=== PATIENT | male | born 1965 | race African-American/Black ===

== ENCOUNTER 2020-04-16 17:27 | Emergency (ER) | payer BC, SELFPAY ==
[2020-04-16 17:38] VITALS: BP 152/75; PULSE 70; RESP 16; TEMP 36.9; O2SAT 99
--- NOTE | 2020-04-16 17:38 | ED.GENADULT ---
HPI - General Adult General Chief complaint: Extremity Injury, Upper Stated complaint: left shoulder pain Time Seen by Provider: 04/16/20 17:45 Source: patient and RN notes reviewed Mode of arrival: ambulatory Limitations: no limitations History of Present Illness HPI narrative: 54-year-old -[place] male presents with complaints of left posterior shoulder pain for the past 7 day. Heating pad and Icyhot with little relief. Chavo says he has been working a lot of overtime at work, in which he lifts a lot of heavy boxes. Denies numbness or tingling. No known injury. Hurts with movement of shoulder. Denies radiating pain. No loss of mobility. No swelling. Exacerbating factor is movement. Relieving factor is rest and pain medication. The dominant hand is the RIGHT HAND. Remains active. The patient reports he have not been diagnosed with COVID-19. The patient reports he is not waiting for the results of a COVID-19 lab test. The patient reports he do not have fever, chills, weakness, or fatigue. The patient reports he do not have a new or worsening cough or shortness of breath. Denies chest pain. The patient reports he do not have any rhinorrhea, congestion, sore throat, loss of taste, nausea, vomiting, abdominal pain, and diarrhea. Tolerating po intake well. Denies recent traveling. Denies concerns for COVID-19 or exposures been home with limited outdoor exposure except for essential household needs, work, and return home. At this time, patient is not suspected of having COVID-19. Some parts of this dictation were generated by voice recognition software and may contain typographical and/or grammatical inaccuracies. Related Data Allergies Allergy/AdvReac Type Severity Reaction Status Date / Time No Known Allergies Allergy Unverified 04/23/16 17:47 Review of Systems Review of Systems: Narrative: CONSTITUTIONAL: Denies fever, chills, sweats. EYES: Denies visual changes, redness, discharge. ENT: Denies rhinorrhea, congestion, sore throat, otalgia. CARDIOVASCULAR: Denies chest pain, palpitations, edema. RESPIRATORY: Denies dyspnea, wheezing, cough. GASTROINTESTINAL: Denies abdominal pain, nausea, vomiting, diarrhea. GENITOURINARY: Denies dysuria, hematuria, abnormal discharge. SKIN: Denies rash or itching. MUSCULOSKELETAL: Denies acute back pain or myalgia. Complains of LT posterior shoulder pain. NEUROLOGIC: Denies numbness or focal weakness. PSYCHIATRIC: Denies anxiety or depression. All other systems reviewed & are unremarkable except as noted in HPI and below. [facility] Past Medical History Medical History (Updated 04/17/20 @ 00:00 by Jenny Daemon) Asthma Broken thumb Right Broken wrist Right Surgical History Surgical History (Updated 04/16/20 @ 17:53 by TRINO Fry) H/O right wrist surgery History of thumb surgery Family History Family History (Updated 04/16/20 @ 17:54 by TRINO Fry) Father , Father was killed when patient was 5 years ago No problems noted. Mother Breast cancer Patient says mother is a recovering breast cancer candidate Social History Social History (Updated 04/16/20 @ 17:54 by TRINO Fry) Smoking status: Never smoker Tobacco type: cigarettes Second hand tobacco smoke exposure: No Alcohol intake: current Substance use: never Living arrangements: with family Occupation/Education: occupation Gender identity (if verbalized by the patient): Male Sexual Orientation (if Verbalized by the Patient): Straight or Heterosexual Comments At time of signature, agree with nurse past medical, surgical, social, and family history. There is no relevant family history pertinent to the presenting complaint. Exam Narrative: Exam Narrative: GENERAL: This is a well-nourished, well-developed patient, in no apparent distress. Talks in full sentences and ambulates with steady gait without dyspnea. HEAD: normocephalic,
== END 2020-04-16 18:07 | disposition home or self-care (01) ==
PROVIDERS: Emergency Provider Nurse Practitioner Family
DX: M25.512 Pain in left shoulder (principal); J45.909 Unspecified asthma, uncomplicated
CPT/HCPCS: 99213; G0463

== ENCOUNTER 2021-09-04 11:05 | Outpatient (CLI) | payer BC, SELFPAY ==
--- NOTE | ~2021-09-04 | US_ITS ---
EXAMINATION: US renal BI DATE: 09/04/2021 11:58 INDICATION: Stage IIIa chronic kidney disease. TECHNIQUE: Multiple ultrasound grayscale images of the kidneys were obtained. COMPARISON: None. FINDINGS: The right kidney measures 9.8 x 4.5 x 3.6 cm. The left kidney measures 9.1 x 4.6 x 3.8 cm. The kidney s demonstrate normal parenchymal echogenicity. There is no hydronephrosis. The bladder is normal. The re is a 10 mm hyperechoic mass in the liver. There is mild splenomegaly measuring 13.2 cm. IMPRESSION: 1. Normal kidneys. No hydronephrosis. 2. 10 mm hyperechoic liver mass. In the absence of known malignancy or chronic liver disease, this fi nding is likely a hemangioma. 3. Mild splenomegaly. Reviewed, dictated and finalized at location B. [employer] IMPRESSION: 1. Normal kidneys. No hydronephrosis. 2. 10 mm hyperechoic liver mass. In the absence of known malignancy or chronic liver disease, this finding is likely a hemangioma. 3. Mild splenomegaly.
[2021-09-04 12:23] LABS: Anion Gap 7 mmol/L (8-16); Blood Urea Nitrogen 19 mg/dL (9-20); Calcium 9.1 mg/dL (8.4-10.2); Carbon Dioxide 26 mmol/L (22-30); Chloride 106 mmol/L (98-107); Estimated Glomerular Filt Rate 59; Glucose 102 mg/dL (65-110); Potassium 4.6 mmol/L (3.4-5.0); Sodium 139 mmol/L (137-145)
== END 2021-09-04 11:06 | disposition home or self-care (01) ==
LOC: ANHIMG 11:15
PROVIDERS: PCP Family Medicine; Visit Provider Internal Medicine Nephrology
DX: I50.32 Chronic diastolic (congestive) heart failure (principal); N18.31 Chronic kidney disease, stage 3a; R16.1 Splenomegaly, not elsewhere classified
CPT/HCPCS: 36415; 76775; 80048

== ENCOUNTER → 2021-12-16 16:54 | Outpatient (CLI) | payer BC, SELFPAY ==
--- NOTE | ~2021-12-16 | XR_ITS ---
EXAMINATION: XR lumbar spine 2-3V DATE: 12/16/2021 17:35 INDICATION: Low back pain TECHNIQUE: Anteroposterior and lateral views of the lumbar spine, and cone-down lateral view of the l umbosacral junction were obtained. COMPARISON: None. FINDINGS: There are 3 mm of retrolisthesis of L4 on L5. Vertebral body alignment is otherwise maintai jovanna. There is no fracture. The vertebral body heights are normal. There is mild loss of intervertebra l disc space height at L5-S1. Mild facet osteoarthritis is noted in the lower lumbar spine. IMPRESSION: 1. Mild lumbar spondylosis without acute findings. Reviewed, dictated and finalized at location F.
== END ==
PROVIDERS: PCP Family Medicine; Visit Provider Family Medicine
DX: M47.896 Other spondylosis, lumbar region (principal)
CPT/HCPCS: 72100

== ENCOUNTER 2023-02-16 16:49 | Outpatient (CLI) | payer BC, SELFPAY ==
--- NOTE | ~2023-02-16 | XR_ITS ---
EXAM: XR lumbar spine 2-3V DATE: 02/16/2023 17:01 HISTORY: M54.50 - Low back pain, unspecified . COMPARISON: 12/16/2021. FINDINGS: 5 nonrib-bearing lumbar-type vertebral bodies. Rudimentary disc at S1-S2. Pedicles intact. 4 mm retrolisthesis at L5-S1. Vertebral body heights preserved. Mild disc space narrowing at L4-5. M oderate lower lumbar facet hypertrophy and sclerosis. No fracture or dislocation. IMPRESSION: Spinal levels are numbered differently than in the prior study. Consider radiographs of the complete spine for level confirmation if surgical or other intervention is planned in the lumbar spine. Grade 1 retrolisthesis at L5-S1. Mild degenerative disc disease at L4-5. Moderate lower lumbar facet arthropathy. Reviewed, dictated and finalized at location K. IMPRESSION: Spinal levels are numbered differently than in the prior study. Consider radiog raphs of the complete spine for level confirmation if surgical or other interve ntion is planned in the lumbar spine. Grade 1 retrolisthesis at L5-S1. Mild degenerative disc disease at L4-5. Modera te lower lumbar facet arthropathy.
== END 2023-02-16 16:50 ==
LOC: MICIMG 16:50
PROVIDERS: PCP Family Medicine; Visit Provider Family Medicine
DX: M51.36 Other intervertebral disc degeneration, lumbar region (principal)
CPT/HCPCS: 72100

== ENCOUNTER 2023-05-02 02:15 | Day surgery (SDC) | payer BC, SELFPAY ==
[2023-04-18 15:29] VITALS: BMI 34.0
--- NOTE | 2023-05-02 09:03 | P.PNAN_ITS ---
Anes - Initial Pre Proc Eval Procedure: Operation Date: 05/02/23 13:30 Proposed Procedures p Screening Colonoscopy - Francisco Eastman MD Date/Time: 05/02/23 09:03 Surgeon: Francisco Eastman MD Pre Op Diagnosis: neoplasm screening Patient Data Age: 58 Gender: M Height: 1.88 m Weight: 120 kg Allergies Allergy/AdvReac Type Severity Reaction Status Date / Time No Known Allergies Allergy Verified 05/02/23 13:34 Home Medications Medication Instructions Recorded Confirmed Type carvedilol 12.5 mg tablet 12.5 mg PO Q12H 06/09/21 05/02/23 History isosorbide dinitrate 10 mg tablet 10 mg PO TID 06/09/21 05/02/23 History empagliflozin 10 mg tablet 10 mg PO DAILY #30 tabs 08/11/22 05/02/23 Rx (Jardiance) furosemide 40 mg tablet (Lasix) 40 mg PO QAM #30 tabs 08/11/22 05/02/23 Rx potassium chloride 10 mEq 10 meq PO DAILY #30 caps 08/11/22 05/02/23 Rx capsule,extended release sacubitril 97 mg-valsartan 103 mg 1 tablet PO BID #60 tabs 08/11/22 05/02/23 Rx tablet (Entresto) Patient hx anesthesia problems: none Family hx anesthesia problems: none Results Review: All pre-operative results and documents have been reviewed as part of the pre- operative evaluation. [facility] Past Medical History Medical History (Updated 05/02/23 @ 09:04 by Quinton Zendejas DO) Asthma Broken thumb Right Broken wrist Right Chronic kidney disease, stage 3a Diastolic CHF Hyp ht/kd NOS I-IV w hf Hypertension Pulmonary HTN Surgical History Surgical History H/O right wrist surgery History of thumb surgery Family History Family History Father , Father was killed when patient was 5 years ago No problems noted. Mother Breast cancer Patient says mother is a recovering breast cancer candidate Social History Social History Smoking status: Never smoker Second hand tobacco smoke exposure: No Alcohol intake: current Drinks per week: 2 Substance use: never Substance use type: does not use Living arrangements: with family Occupation/Education: occupation Gender identity (if verbalized by the patient): Male Sexual Orientation (if Verbalized by the Patient): Straight or Heterosexual Spiritual care concerns: No Anes - Eval Final PreProcedure Day of Procedure 05/02/23 09:03 Patient weight: obese Heart: regular rate and rhythm Lungs: clear to auscultation Airway: Mallampati scale class II Neurological: alert and oriented Last oral intake: >/= 8 hours ASA classification: III Emergent: no Anesthetic plan: proceed Anesthesia type and monitoring: general GIVS and standard monitoring Results Review: All pre-operative results and documents have been reviewed as part of the pre- operative evaluation. Informed Consent: The patient's anesthetic plan and its attendant risks and benefits were discussed with the patient/family/POA. Questions were solicited and answers provided to the satisfaction of the patient/family/POA.
[2023-05-02 13:35] VITALS: BP 147/80; PULSE 65; RESP 17; TEMP 36.1; O2SAT 100; BMI 33.0
[2023-05-02] MEDS: LACTATED RINGERS 1,000 ML 150 ML IV CONT (13:45)
[2023-05-02 14:57] VITALS: BP 123/73; PULSE 63; RESP 19; O2SAT 100
[2023-05-02 15:07] VITALS: BP 147/86; PULSE 60; RESP 21; O2SAT 100
[2023-05-02 15:17] VITALS: BP 138/95; PULSE 61; RESP 19; O2SAT 100
--- NOTE | 2023-05-03 15:42 | P.HP_ITS ---
History of Present Illness History of Present Illness Consent: Risks, benefits, and alternatives have been discussed and questions answered. Patient agrees to proceed with procedure. Chief complaint: neoplasm screening Narrative: Chavo Holden is a 58 year old male Presents for screening colonoscopy on 05/02/2023. Patient's weight appetite bowel movements are normal. He has never previously had colonoscopy. Family history noncontributory. Review of Systems Review of Systems: Review of systems noncontributory. [facility] Past Medical History Medical History (Updated 05/03/23 @ 15:43 by Francisco Eastman MD) Asthma Broken thumb Right Broken wrist Right Chronic kidney disease, stage 3a Diastolic CHF Hyp ht/kd NOS I-IV w hf Hypertension Pulmonary HTN Surgical History Surgical History H/O right wrist surgery History of thumb surgery Family History Family History Father , Father was killed when patient was 5 years ago No problems noted. Mother Breast cancer Patient says mother is a recovering breast cancer candidate Social History Social History Smoking status: Never smoker Second hand tobacco smoke exposure: No Alcohol intake: current Drinks per week: 2 Substance use: never Substance use type: does not use Living arrangements: with family Occupation/Education: occupation Gender identity (if verbalized by the patient): Male Sexual Orientation (if Verbalized by the Patient): Straight or Heterosexual Spiritual care concerns: No Meds Home Medications and Allergies Home Medications Medication Instructions Recorded Confirmed Type carvedilol 12.5 mg tablet 12.5 mg PO Q12H 06/09/21 05/02/23 History isosorbide dinitrate 10 mg tablet 10 mg PO TID 06/09/21 05/02/23 History empagliflozin 10 mg tablet 10 mg PO DAILY #30 tabs 08/11/22 05/02/23 Rx (Jardiance) furosemide 40 mg tablet (Lasix) 40 mg PO QAM #30 tabs 08/11/22 05/02/23 Rx potassium chloride 10 mEq 10 meq PO DAILY #30 caps 08/11/22 05/02/23 Rx capsule,extended release sacubitril 97 mg-valsartan 103 mg 1 tablet PO BID #60 tabs 08/11/22 05/02/23 Rx tablet (Entresto) Allergies Allergy/AdvReac Type Severity Reaction Status Date / Time No Known Allergies Allergy Verified 05/02/23 13:34 Exam Narrative: Physical exam reveals patient to be alert. Vital signs stable. HEENT exam is unremarkable. Patient is anicteric. Lungs are clear to auscultation and to percussion. Heart is without murmur or extra sounds. Abdomen bowel sounds present soft nontender with no organomegaly. Digital external rectal exam normal. Assessment and Plan Assessment and plan (1) Encounter for screening colonoscopy: Code(s): Z12.11 - Encounter for screening for malignant neoplasm of colon Status: Acute Assessment and Plan: Patient presents for screening colonoscopy on 05/02/2023. This is 1st exam. Appears be at average risk for colon polyps.
== END 2023-05-02 15:25 | disposition home or self-care (01) ==
PROVIDERS: PCP Family Medicine; Visit Provider Internal Medicine Gastroenterology
PROC: 0DJD8ZZ Inspection of Lower Intestinal Tract, Via Natural or Artificial Opening Endoscopic (ICD-10-PCS; CPT 45378; principal; 2023-05-02 13:30)
DX: Z12.11 Encounter for screening for malignant neoplasm of colon (principal); K64.8 Other hemorrhoids; K57.30 Diverticulosis of large intestine without perforation or abscess without bleeding; I13.0 Hypertensive heart and chronic kidney disease with heart failure and stage 1 through stage 4 chronic kidney disease, or unspecified chronic kidney disease; I50.30 Unspecified diastolic (congestive) heart failure; N18.31 Chronic kidney disease, stage 3a; Z79.84 Long term (current) use of oral hypoglycemic drugs; E66.9 Obesity, unspecified; Z68.33 Body mass index [BMI] 33.0-33.9, adult
CPT/HCPCS: 45378; J2704; J7120

== ENCOUNTER 2023-11-15 12:15 | Outpatient (CLI) | payer BC, SELFPAY ==
--- NOTE | ~2023-11-15 | US_ITS ---
US thyroid INDICATION: Iodine deficiency goiter TECHNIQUE: Real-time sonographic images of the thyroid gland were obtained. COMPARISON: No prior studies for comparison. FINDINGS: The right thyroid lobe measures 5.3 x 1.9 x 1.7 cm. The left thyroid lobe measures 4.9 x 1 .4 x 2 cm. There is normal echotexture and echogenicity throughout the thyroid gland. There are small left thyroid nodules, largest located superiorly measuring 4 x 4 x 4 mm which is wider than tall, hy poechoic, solid, circumscribed margins without echogenic foci, TR 4. Normal vascular flow is present. IMPRESSION: 1. Small left thyroid nodules measuring 4 mm or less, likely benign. Reviewed, dictated and finalized at location B.
== END 2023-11-15 12:16 | disposition home or self-care (01) ==
PROVIDERS: PCP Family Medicine; Visit Provider Family Medicine
DX: E01.0 Iodine-deficiency related diffuse (endemic) goiter (principal)
CPT/HCPCS: 76536